=== PATIENT | female | born 1970 | race Caucasian/White ===

== ENCOUNTER 2017-12-16 09:00 | Inpatient (IN) | payer OTHER ==
[~2017-12-16] VITALS: Ht 154.9 cm; Wt 86.2 kg
[2017-12-16] MEDS ORDERED: COZAAR100 MG PO (13:42)
[2017-12-16] MEDS ORDERED: ZOCOR20 MG PO (13:43)
[2017-12-16] MEDS ORDERED: CYMBALTA60 MG PO (13:43)
[2017-12-16] MEDS ORDERED: CLONAZEPAM2 MG PO (13:44)
[2017-12-18] MEDS ORDERED: CLONAZEPAM1 MG PO (16:13)
[2017-12-18] MEDS ORDERED: COLACE100 MG PO (16:13)
[2017-12-18] MEDS ORDERED: PERCOCET 5-3251 EACH PO (16:13)
== END 2017-12-19 14:06 | disposition home or self-care (01) | DRG 472 ==
LOC: O/R 09:00 → PED 12-18 04:50 → O/R 12-18 04:50 → SURG 12-18 09:00 → PED 12-18 17:00
PROVIDERS: Orthopaedic Surgery Orthopaedic Surgery of the Spine
PROC: 0RG20A0 Fusion of 2 or more Cervical Vertebral Joints with Interbody Fusion Device, Anterior Approach, Anterior Column, Open Approach (ICD-10-PCS; 2017-12-18)
PROC: 0RT30ZZ Resection of Cervical Vertebral Disc, Open Approach (ICD-10-PCS; principal; 2017-12-18 13:00)
DX: M47.12 Other spondylosis with myelopathy, cervical region (principal); M50.023 Cervical disc disorder at C6-C7 level with myelopathy; I10 Essential (primary) hypertension; M79.7 Fibromyalgia

== ENCOUNTER 2023-05-17 21:27 | Emergency (ER) | payer OTHER ==
[~2023-05-17] VITALS: Ht 157.5 cm; Wt 94.3 kg
[~2023-05-17 21:27] MED LIST: CLONAZEPAM1 MG PO; CLONAZEPAM2 MG PO; COLACE100 MG PO; COZAAR100 MG PO; CYMBALTA60 MG PO; PERCOCET 5-3251 EACH PO; ZOCOR20 MG PO
[2023-05-17] MEDS ORDERED: METFORMIN HCL500 MG (21:54)
[2023-05-17] MEDS ORDERED: JARDIANCE10 MG (21:55)
== END 2023-05-17 22:55 | disposition home or self-care (01) ==
LOC: ER 21:27
DX: R51.9 Headache, unspecified (principal); Z88.8 Allergy status to other drugs, medicaments and biological substances
CPT/HCPCS: 96372; 99284; J1885; J2360